=== PATIENT | male | born 1955 | race Two or more races ===

== ENCOUNTER → 2024-05-31 14:11 | Outpatient (REF) | payer OTHER, SELFPAY | LOC: RAD 14:11 | PROVIDERS: ATTENDING PHYSICIAN Specialist; FAMILY PHYSICIAN Family Medicine | DX: R63.4 Abnormal weight loss (principal) | CPT/HCPCS: 74177; Q9967 ==

== ENCOUNTER → 2024-06-29 10:34 | Outpatient (REF) | payer OTHER, SELFPAY | LOC: RAD 10:34 | PROVIDERS: ATTENDING PHYSICIAN Family Medicine | DX: Z13.820 Encounter for screening for osteoporosis (principal); E78.2 Mixed hyperlipidemia; R73.01 Impaired fasting glucose; D64.9 Anemia, unspecified; I10 Essential (primary) hypertension | CPT/HCPCS: 77080 ==

== ENCOUNTER → 2025-03-22 10:30 | Outpatient (REF) | payer OTHER, SELFPAY | LOC: HWLAB 10:30 | PROVIDERS: ATTENDING PHYSICIAN Nurse Practitioner Family; FAMILY PHYSICIAN Family Medicine | DX: R04.2 Hemoptysis (principal) | CPT/HCPCS: 71046; 87070; 87205 ==